=== PATIENT | male | born 1980 | race Two or more races ===

== ENCOUNTER 2018-06-30 08:29 | Emergency (ER) | payer OTHER ==
--- NOTE | 2018-06-30 08:57 | EDPHY ---
H & P Time Seen by Provider: 06/30/18 08:56 HPI/ROS: CHIEF COMPLAINT: Cough and fever HISTORY OF PRESENT ILLNESS: Patient is history of insulin-dependent diabetes, got a flu shot 2 weeks ago. Started having symptoms 2 days ago started with an itchy throat, progressed to a full body aches and then yesterday developed a cough with a sore chest. Fevers and chills associated. Symptoms moderate and not better or worse with anything. Last antipyretic was yesterday. Not associated with vomiting or diarrhea or ear symptoms. Can still swallow adequately and glucose around 200s. REVIEW OF SYSTEMS: Eye: no change in vision ENT: no sore throat Cardiac: H PA chest soreness no palpitations or syncope Pulmonary: HPI Abdomen: no vomiting, diarrhea, abdominal pain Musculoskeletal: HPI Skin: no rash Neuro: no headache Constitutional: HPI : no urinary symptoms A comprehensive 10 point review of systems is otherwise negative aside from elements mentioned in the history of present illness. PAST MEDICAL HISTORY: Includes insulin-dependent diabetes and hyperlipidemia Social history: Nonsmoker here with his son General Appearance: Alert and conversant, cooperative. Eyes: No scleral icterus. ENT, Mouth: Pharyngeal erythema but no exudate, no trismus, uvula midline, no stridor or drooling. Respiratory: Occasional expiratory wheezing but no rhonchi or rales, speaks in full sentences. Cardiovascular: Regular rate and rhythm. Gastrointestinal: Abdomen is soft and non tender. Neurological: Alert, face symmetric, normal motor and sensory in extremities. Skin: Warm and dry, no rashes. Musculoskeletal: Normal range of motion of the neck, supple, no meningeal signs. Psychiatric: Not agitated. Emergency Department course/MDM: DuoNeb and chest x-ray. CBC and chemistry and influenza testing. IV normal saline 1 L and acetaminophen for fever. Patient re-evaluated. His glucose is in his usual range, he is not hypoxic, does not look septic or toxic. Clinically does not have meningitis or pneumonia. Treatment with Tamiflu because of his immunocompromised state with diabetes discussed and consented. Smoking Status: Former smoker Constitutional: Initial Vital Signs Temperature (C) 38.2 C 06/30/18 08:38 Heart Rate 94 06/30/18 08:38 Respiratory Rate 18 06/30/18 08:38 Blood Pressure 111/70 06/30/18 08:38 O2 Sat (%) 95 06/30/18 08:38 O2 Delivery Mode Nasal Cannula O2 (L/minute) 4 Allergies/Adverse Reactions: No Known Allergies Allergy (Unverified 10/15/14 21:59) Home Medications: Medication Instructions Recorded Insulin Dose Unk 05/26/12 Lipid Medicine 05/26/12 Novolin 70/30 (OTC) 08/24/13 novoLOG 08/24/13 Novalog 11/29/13 Levemir 10/15/14 Metformin 1000 mg 10/15/14 Oseltamivir Phosphate [Tamiflu] 75 mg PO BID #9 cap 06/30/18 Medical Decision Making - Diagnostics Imaging Results: Imaging Impressions Chest X-Ray 06/30/18 09:02 Impression: Normal. Imaging: Discussed imaging studies w/ call center director Radiologist Differential Diagnosis: Differential for fever considered including but not limited to meningitis or sepsis, pneumonia, UTI, diabetic ketoacidosis. - Data Points Laboratory Results: Laboratory Results 06/30/18 09:15 06/30/18 09:15 06/30/18 06/30/18 06/30/18 09:30 09:15 09:15 WBC 11.87 10^3/uL H 10^3/uL (3.80-9.50) RBC 5.88 10^6/uL 10^6/uL (4.40-6.38) Hgb 17.7 g/dL H g/dL (13.7-17.5) Hct 51.1 % H % (40.0-51.0) MCV 86.9 fL fL (81.5-99.8) MCH 30.1 pg pg (27.9-34.1) MCHC 34.6 g/dL g/dL (32.4-36.7) RDW 12.3 % % (11.5-15.2) Plt Count 196 10^3/uL 10^3/uL (150-400) MPV 10.1 fL fL (8.7-11.7) Neut % (Auto) 85.7 % H % (39.3-74.2) Lymph % (Auto) 6.0 % L % (15.0-45.0) [place] % (Auto) 7.8 % % (4.5-13.0) Eos % (Auto) 0.0 % L % (0.6-7.6) Baso % (Auto) 0.2 % L % (0.3-1.7) Nucleat RBC Rel Count 0.0 % % (0.0-0.2) Absolute Neuts (auto) 10.18 10^3/uL H 10^3/uL (1.70-6.50) Absolute Lymphs (auto) 0.71 10^3/uL L 10^3/uL (1.00-3.00) Absolute Monos (auto) 0.92 10^3/uL H 10^3/uL (0.30-0.80) Absolute Eos (auto) 0.00 10^3/uL L 10^3/uL (0.03-0.40) Absolute Basos (auto) 0.02 10^3/uL 10^3/uL (0.02-0.10) Absolute Nucleated RBC 0.00 10^3/uL 10^3/uL (0-0.01) Immature Gran % 0.3 % % (0.0-1.1) Immature Gran # 0.04 10^3/uL 10^3/uL (0.00-0.10) Sodium 134 mEq/L L mEq/L (135-145) Potassium 4.2 mEq/L mEq/L (3.5-5.2) Chloride 98 mEq/L mEq/L (97-110) Carbon Dioxide 23 mEq/l mEq/l (22-31) Anion Gap 13 mEq/L mEq/L (6-14) BUN 20 mg/dL mg/dL (7-23) Creatinine 0.8 mg/dL mg/dL (0.7-1.3) Estimated GFR > 60 Glucose 286 mg/dL H mg/dL (70-100) Calcium 9.5 mg/dL mg/dL (8.5-10.4) Nasal Influenza A PCR FLU A DETECTED H (NEGATIVE) Nasal Influenza B PCR NEGATIVE FOR FLU B (NEGATIVE) Medications Given: Discontinued Medications Acetaminophen (Tylenol) 650 mg PO EDNOW ONE Stop: 06/30/18 09:03 Last Admin: 06/30/18 09:30 Dose: 650 mg Albuterol/Ipratropium (Duoneb) 3 ml IH EDNOW ONE Stop: 06/30/18 09:03 Last Admin: 06/30/18 09:30 Dose: 3 ml Sodium Chloride (Ns) 1,000 mls @ 0 mls/hr IV ONCE ONE; Wide Open PRN Reason: Protocol Stop: 06/30/18 09:03 Last Admin: 06/30/18 09:30 Dose: 1,000 mls Oseltamivir Phosphate (Tamiflu) 75 mg PO EDNOW ONE Stop: 06/30/18 10:27 Last Admin: 06/30/18 10:31 Dose: 75 mg Departure - Departure Disposition: Home, Routine, Self-Care Clinical Impression: Influenza A Condition: Good Instructions: Influenza (ED) Referrals: Cathy Sheridan PA [Primary Care Provider] - As per Instructions Stand Alone Forms: Work Excuse Prescriptions: Oseltamivir Phosphate [Tamiflu] 75 mg PO BID #9 cap
[2018-06-30] MEDS ORDERED: ACETAMINOPHEN 325 MG TAB PO ONE (09:02)
[2018-06-30] MEDS ORDERED: NS 1,000 ML IV ONE (09:02)
[2018-06-30] MEDS ORDERED: IPRATROPIUM/ALBUTEROL 3 ML DEYVIAL IH ONE (09:02)
[2018-06-30 09:39] LABS: PLATELET COUNT 196 10^3/uL (150-400)
[2018-06-30 10:19] VITALS: BP 156/98
[2018-06-30] MEDS ORDERED: OSELTAMIVIR PHOSPHATE 75 MG CAP PO ONE (10:26)
== END 2018-06-30 10:36 | disposition home or self-care (01) ==
DX: J10.1 Influenza due to other identified influenza virus with other respiratory manifestations (principal); E11.9 Type 2 diabetes mellitus without complications; E78.5 Hyperlipidemia, unspecified; Z79.4 Long term (current) use of insulin